=== PATIENT | female | born 1970 | race African-American/Black ===

== ENCOUNTER 2016-06-06 02:53 | Emergency (ER) | payer SELFPAY ==
[~2016-06-06] VITALS: Ht 157.5 cm; Wt 137.0 kg
[2016-06-06 03:32] LABS: CLARITY URINE CLEAR (CLEAR); COLOR URINE YELLOW (YELLOW); GLUCOSE URINE NEGATIVE (NEGATIVE); KETONES URINE NEGATIVE (NEGATIVE); LEUKOCYTE ESTERASE URINE NEGATIVE (NEGATIVE); NITRITE URINE NEGATIVE (NEGATIVE); OCCULT BLOOD URINE TRACE (NEGATIVE); PH URINE 5.5 (4.5-8.0); PROTEIN URINE NEGATIVE (NEGATIVE); SPECIFIC GRAVITY URINE 1.022 (1.005-1.030); UROBILINOGEN URINE 0.2 E.U./dL (0.2-1.0)
[2016-06-06 03:48] LABS: BACTERIA URINE NONE SEEN; RBC URINE NONE SEEN /hpf (0-2); SQUAMOUS EPITHELIAL CELL URINE 1+ /lpf (RARE/1+); WBC URINE NONE SEEN /hpf (0-2)
[2016-06-06] MEDS ORDERED: DICYCLOMINE 10 MG/5 ML ORAL SYR PO STA (03:50)
[2016-06-06] MEDS ORDERED: MAGNESIUM/ALUMINUM HYDROXIDE/SIMETHICONE 30ML UDC PO STA ×3 (03:50→12:19)
[2016-06-06] MEDS ORDERED: VISCOUS LIDOCAINE 2% 15 ML UDC PO STA (03:50)
[2016-06-06 04:16] LABS: BASOPHILS % 0.7 % (0.0-2.0); EOSINOPHILS % 0.9 % (0.0-5.0); HEMATOCRIT. 37.7 % (36.0-48.0); LYMPHOCYTES % 29.7 % (20.0-50.0); MEAN CORPUSCULAR HEMOGLOBIN 25.6 pg (28.0-32.0); MEAN CORPUSCULAR HGB CONC 31.9 g/dL (31.0-37.0); MEAN CORPUSCULAR VOLUME 80.3 fL (81.0-99.0); MEAN PLATELET VOLUME 8.7 fl (7.4-10.4); NEUTROPHILS % 59.7 % (40.0-76.0); PLATELET 196 x1000/uL (130-400); RED BLOOD CELL COUNT 4.69 mill/uL (4.2-5.4); RED CELL DISTRIBUTION WIDTH 16.2 % (11.6-14.6); WHITE BLOOD COUNT 8.7 x1000/uL (4.5-11.0)
[2016-06-06 04:30] LABS: ALANINE AMINOTRANSFERASE 27 IU/L (13-61); ALBUMIN 3.2 g/dL (3.4-5.0); ANION GAP 10; CALCIUM 8.3 mg/dL (8.5-10.1); CARBON DIOXIDE 24 mEq/L (21-32); CHLORIDE 112 mEq/L (98-107); INDEX HEMOLYSI 1 (1-3); INDEX ICTERIC 1 (1-4); INDEX LIPEMIC 1 (1-3); LIPASE 242 IU/L (73-393); NT PRO B-TYPE NATRIURETIC PEP 18 pg/mL (5-125); TROPONIN I < 0.02 ng/mL (0.00-0.04); UREA NITROGEN BLOOD 10 mg/dL (7-21); eGFR > 60 mL/min (>60)
[2016-06-06 04:31] LABS: PROTHROMBIN TIME 10.1 sec
[2016-06-06] MEDS ORDERED: PANTOPRAZOLE 40MG DR TABLET PO ONE (11:45)
[2016-06-06] MEDS ORDERED: SODIUM CHLORIDE 0.9% 1,000 ML IV ONE (12:09)
[2016-06-06 13:02] VITALS: BP 131/75
[2016-06-06] MEDS ORDERED: PANTOPRAZOLE SODIUM 40 MG/VIAL IV SCH (13:30)
[2016-06-06] MEDS ORDERED: PANTOPRAZOLE SODIUM 40 MG/VIAL IV ONE (13:39)
== END 2016-06-06 16:00 | disposition home or self-care (01) ==
LOC: ER 03:02
DX: K21.9 Gastro-esophageal reflux disease without esophagitis (principal); E66.01 Morbid (severe) obesity due to excess calories; M25.562 Pain in left knee; J45.909 Unspecified asthma, uncomplicated; F17.210 Nicotine dependence, cigarettes, uncomplicated; Z88.0 Allergy status to penicillin; Z90.49 Acquired absence of other specified parts of digestive tract; Z98.890 Other specified postprocedural states; Z68.43 Body mass index [BMI] 50.0-59.9, adult
CPT/HCPCS: 36415; 71010; 73562; 80053; 81001; 81025; 83690; 83880; 84484; 85025; 85610; 93005; 96361; 96374; 99285; C9113; J7030; Z7610

== ENCOUNTER 2022-06-10 18:13 | Emergency (ER) | payer MEDICAID ==
[~2022-06-10] VITALS: Ht 157.5 cm; Wt 114.0 kg
[2022-06-10 18:17] VITALS: BP 192/82
[2022-06-10] MEDS ORDERED: ACETAMINOPHEN 325MG TABLET PO STA (19:50)
[2022-06-10] MEDS ORDERED: DIPHENHYDRAMINE 25MG CAPSULE PO ONE (20:00)
[2022-06-10] MEDS ORDERED: METOCLOPRAMIDE HCL 10MG TABLET PO ONE (20:00)
[2022-06-10 20:49] LABS: BASOPHILS % 0.7 % (0.0-2.0); EOSINOPHILS % 0.2 % (0.0-5.0); HEMATOCRIT. 44.5 % (36.0-48.0); HEMOGLOBIN. 14.5 g/dL (12.0-16.0); LYMPHOCYTES % 16.3 % (20.0-50.0); MEAN CORPUSCULAR HEMOGLOBIN 28.2 pg (28.0-32.0); MEAN CORPUSCULAR VOLUME 86.6 fL (81.0-99.0); MEAN PLATELET VOLUME 8.8 fl (7.4-10.4); NEUTROPHILS % 78.8 % (40.0-76.0); PLATELET 205 x1000/uL (130-400); RED BLOOD CELL COUNT 5.14 mill/uL (4.2-5.4)
[2022-06-10 20:58] LABS: CHLORIDE 111 mEq/L (98-107)
[2022-06-10] MEDS ORDERED: METO-293 MT (21:31)
[2022-06-10] MEDS ORDERED: ACET-2708 MT (21:31)
== END 2022-06-10 22:16 | disposition home or self-care (01) ==
LOC: ER 18:13
DX: B34.9 Viral infection, unspecified (principal); R07.89 Other chest pain; R11.2 Nausea with vomiting, unspecified; R51.9 Headache, unspecified; J45.909 Unspecified asthma, uncomplicated; R01.1 Cardiac murmur, unspecified; Z20.822 Contact with and (suspected) exposure to COVID-19; Z90.49 Acquired absence of other specified parts of digestive tract; Z87.19 Personal history of other diseases of the digestive system; Z88.0 Allergy status to penicillin
CPT/HCPCS: 36415; 71045; 80053; 84484; 85025; 87426; 93005; 99285; C9803; J8597; Q0163

== ENCOUNTER 2022-06-16 05:57 | Emergency (ER) | payer MEDICAID ==
[~2022-06-16] VITALS: Ht 157.5 cm; Wt 113.5 kg
[~2022-06-16 05:57] MED LIST: ACET-2708 MT; METO-293 MT
[2022-06-16] MEDS ORDERED: IBUPROFEN 600MG TABLET PO STA (06:30)
[2022-06-16] MEDS ORDERED: IBUP-2029 MT (12:51)
[2022-06-16] MEDS ORDERED: ACETAMINOPHEN 325MG TABLET PO ONE (13:00)
[2022-06-16 13:33] VITALS: BP 127/86
== END 2022-06-16 13:34 | disposition home or self-care (01) ==
LOC: ER 05:57
DX: R05.9 Cough, unspecified (principal); R51.9 Headache, unspecified; J45.909 Unspecified asthma, uncomplicated; Z88.0 Allergy status to penicillin; Z90.49 Acquired absence of other specified parts of digestive tract; Z98.890 Other specified postprocedural states
CPT/HCPCS: 71045; 99284